=== PATIENT | female | born 1965 | race Caucasian/White ===

== ENCOUNTER 2016-11-21 15:32 | Emergency (ER) | payer SELFPAY ==
[~2016-11-21] VITALS: Wt 68.0 kg
[~2016-11-21 15:32] MED LIST: CEPH-443 PO; IBUP800T25 PO
== END 2016-11-21 20:54 | disposition left against medical advice (07) ==
LOC: E/R 15:32
DX: Z53.21 Procedure and treatment not carried out due to patient leaving prior to being seen by health care provider (principal)
CPT/HCPCS: 93005

== ENCOUNTER 2018-11-22 10:54 | Emergency (ER) | payer OTHER ==
[~2018-11-22] VITALS: Ht 167.6 cm; Wt 72.2 kg
[~2018-11-22 10:54] MED LIST changes: -IBUP800T25 PO; +IBUP800T48 PO
[2018-11-22 10:58] VITALS: Ht 167.6 cm; Wt 72.2 kg
[2018-11-22] MEDS ORDERED: SOD CHLORIDE 0.9% 720 ML IV ONE (12:30)
[2018-11-22] MEDS ORDERED: ATOR20TA38 PO (13:25)
[2018-11-22] MEDS ORDERED: LOSA50TA14 PO (13:25)
[2018-11-22] MEDS ORDERED: FLUO20CA22 PO (13:25)
[2018-11-22] MEDS ORDERED: ASPI-817 PO (13:25)
[2018-11-22] MEDS ORDERED: METF-480 PO (13:25)
[2018-11-22] MEDS ORDERED: LORA0.5T PO (13:25)
[2018-11-22] MEDS ORDERED: ONDANSETRON 4 MG INJ IV STA (13:48)
[2018-11-22] MEDS ORDERED: KETOROLAC 15 MG INJ IV STA (13:48)
--- NOTE | 2018-11-22 13:50 | ERD ---
ER Documentation Chief Complaint Chief Complaint Complains of headache and dizziness x 2 days HPI This is a 53-year-old female with a past medical history of hypertension, hyperlipidemia, diabetes who is presenting with 2 days of lightheadedness, dehydration and mild headache with nausea but no vomiting. The patient reports that she has not been drinking enough water recently and feels dehydrated. The patient describes her headache as mild, throbbing and frontal. It is not the worst headache of her life. She denies any photophobia or phonophobia. She does not have any blurry or double vision. She does not endorse dizziness. She does not feel like the room is spinning. The patient denies feeling sick recently. The patient denies fever or chills. The patient does not endorse neck or back pain. The patient has had no chest pain or trouble breathing. The patient denies abdominal pain. The patient denies changes to bowel movements or urination. The patient has had no focal deficits. The patient has had no weakness or numbness or tingling to the face or extremities. ROS All systems reviewed and are negative except as per history of present illness. Medications Home Meds Reported Medications Lorazepam* (Lorazepam*) 0.5 Mg Tablet, 0.5 MG PO Q8 PRN for ANXIETY, TAB 11/22/18 Fluoxetine Hcl* (Fluoxetine Hcl*) 20 Mg Capsule, 40 MG PO DAILY, CAP 11/22/18 Losartan Potassium* (Losartan Potassium*) 50 Mg Tablet, 50 MG PO DAILY, TAB 11/22/18 Atorvastatin Calcium* (Atorvastatin Calcium*) 20 Mg Tablet, 20 MG PO QHS, #30 TAB 11/22/18 Metformin* (Glucophage*) 850 Mg Tablet, 850 MG PO WITH BREAKFAST, #30 TAB 11/22/18 Aspirin* (Aspirin* EC) 81 Mg Tablet.dr, 81 MG PO DAILY, TAB 11/22/18 Discontinued Scripts Ibuprofen* (Motrin*) 800 Mg Tab, 800 MG PO Q6H PRN for PAIN AND OR ELEVATED TEMP, #30 TAB Prov:HAILE CAMACHO MD 06/24/15 Cephalexin* (Keflex*) 500 Mg Capsule, 500 MG PO BID for 14 Days, CAP Prov:HAILE CAMACHO MD 06/24/15 Allergies Allergies: Coded Allergies: No Known Allergy (Unverified , 11/22/18) PMhx/Soc History of Surgery: Yes (HERNIA, , APPI) Anesthesia Reaction: No Hx Neurological Disorder: No Hx Respiratory Disorders: No Hx Cardiac Disorders: Yes (HTN) Hx Psychiatric Problems: No Hx Miscellaneous Medical Probl: Yes (DM) Hx Alcohol Use: No Hx Substance Use: No Hx Tobacco Use: No Smoking Status: Never smoker FmHx Family History: diabetes Physical Exam Vitals Vital Signs Date Temp Pulse Resp B/P (MAP) Pulse Ox O2 O2 Flow FiO2 Time Delivery Rate 11/22/18 97.6 79 20 131/79 98 10:58 (96) Physical Exam Const: No apparent distress, well-developed, well-nourished Head: Normocephalic, Atraumatic Eyes: Normal Conjunctiva. Extraocular movements intact. Pupils equal, round and reactive to light ENT: Normal External Ears, Nose and Mouth. Neck: Full range of motion. No meningismus. Resp: Clear to auscultation bilaterally, No wheezes, rales or rhonchi Cardio: Regular rate and rhythm. No murmurs, rubs or gallops Abd: Soft, non tender, non distended. Normal bowel sounds Skin: No petechiae or rashes Back: No midline tenderness. No CVA tenderness Ext: No cyanosis, or edema Neur: Awake and alert, oriented 4. Cranial nerves intact. No facial droop. Normal strength, sensation and coordination. Psych: Normal Mood and Affect Result Diagram: 11/22/18 1157 11/22/18 1157 Results 24 hrs Laboratory Tests Test 11/22/18 11:51 11/22/18 11:57 11/22/18 12:08 Urine Color YELLOW Urine Clarity SLIGHTLY CLOUDY Urine pH 6.0 Urine Specific [place] 1.015 Urine Ketones 1+ mg/dL Urine Nitrite NEGATIVE mg/dL Urine Bilirubin NEGATIVE mg/dL Urine Urobilinogen NEGATIVE mg/dL Urine Leukocyte Esterase NEGATIVE Sara/ul Urine Microscopic RBC 2 /HPF Urine Microscopic WBC 0 /HPF Urine Squamous FEW /HPF Epithelial Cells Urine Mucus FEW /HPF Urine Hemoglobin 1+ mg/dL Urine Glucose NEGATIVE mg/dL Urine Total Protein NEGATIVE mg/dl White Blood Count 6.6 10^3/ul Red Blood Count 4.89 10^6/ul Hemoglobin 14.5 g/dl Hematocrit 44.2 % Mean Corpuscular Volume 90.4 fl Mean Corpuscular 29.7 pg Hemoglobin Mean Corpuscular 32.8 g/dl Hemoglobin Concent Red Cell Distribution 13.0 % Width Platelet Count 302 10^3/UL Mean Platelet Volume 10.5 fl Immature Granulocytes % 0.300 % Neutrophils % 62.4 % Lymphocytes % 29.3 % Monocytes % 6.4 % Eosinophils % 0.8 % Basophils % 0.8 % Nucleated Red Blood Cells 0.0 /100WBC % Immature Granulocytes # 0.020 10^3/ul Neutrophils # 4.1 10^3/ul Lymphocytes # 1.9 10^3/ul Monocytes # 0.4 10^3/ul Eosinophils # 0.1 10^3/ul Basophils # 0.1 10^3/ul Nucleated Red Blood Cells 0.0 10^3/ul # Sodium Level 138 mmol/L Potassium Level 4.1 mmol/L Chloride Level 101 mmol/L Carbon Dioxide Level 25 mmol/L Anion Gap 12 Blood Urea Nitrogen 15 mg/dl Creatinine 0.58 mg/dl Est Glomerular Filtrat > 60 mL/min Rate mL/min Glucose Level 169 mg/dl Calcium Level 10.2 mg/dl Phosphorus Level 4.2 mg/dl Magnesium Level 1.9 mg/dl Blood Gas Specimen Source Blood venous Arterial Blood Date 11/22/2018 1:28:40 PM Drawn Arterial Blood Gas VENOUS LINE Puncture Site Azael Test N/A Venous Blood pH 7.378 Venous Blood pCO2 45.1 mmHG (Temp Corrected) Venous Blood pO2 27.2 mmHG (Temp Corrected) Venous Blood HCO3 26.0 mmol/L Venous Blood Oxygen 53.2 mmHG Saturation Venous Blood Base Excess 0.4 mmol/L Venous Blood Total 14.6 g/dl Hemoglobin Venous Blood 52.6 % Oxyhemoglobin Venous Blood 0.4 % Methemoglobin Carboxyhemoglobin 0.7 % Blood Gas Temperature 37.0 C Blood Gas Modality ROOM AIR FiO2 21.0 % Blood Gas Notified Whom TM Blood Gas Notified Time 11/22/2018 1:34:17 PM Current Medications Medications Dose Sig/Alexis Start Time Status Last (Trade) Ordered Route PRN Stop Time Admin Dose Reason Admin Sodium 720 ml @ ONCE ONCE 11/22/18 DC 11/22/18 Chloride 720 mls/hr IV 12:30 13:21 11/22/18 13:29 Procedures/MDM MDM The patient's presentation warrants further investigation. Previous medical records, if available, were reviewed. LABS The patient's laboratory testing was obtained and reviewed. No emergent treatment was required unless described below. CBC: No E/o of systemic infection or severe anemia or thrombocytopenia Chemistry: No E/o severe acidosis or alkalosis or renal failure or diabetic k etoacidosis Urine: No E/o acute infection or hematuria EKG EKG read by me: Rate/Rhythm: Regular rate and rhythm at a rate of 67 bpm Intervals: Normal Proctor: Normal Impression: Q waves in the inferior leads concerning for possible old inferior ischemia. No evidence of acute ischemia or arrhythmia TREATMENT/DISPOSITION The patient presents after for presyncope, which is potentially related to dehydration. The patient does endorse feeling dehydrated and not drinking enough water recently. The patient has a reassuring physical exam. The patient is not clinically orthostatic. The patient is not dizzy. I have decreased suspicion for vertigo. The patient has no signs of emergent or symptomatic anemia. The patient does not have any emergent electrolyte or metabolic emergencies. I do not see evidence of DKA. I have decrease suspicion for a thyroid disorder. The patient is not toxic appearing. I have decreased suspicion for an infectious etiology of symptoms. The patient's EKG is reassuring. I have low suspicion for acute coronary syndrome. I do not see evidence of any emergent cardiac arrhythmia, which includes but is not limited to heart block, Brugada syndrome or WPW. The patient has no heart murmurs or rales. There is no evidence of cardiomegaly on exam or chest xray. I have low suspicion for hypertrophic cardiomyopathy. I do not see evidence of CHF. The patient does not endorse any chest or pleuritic pain. The history is negative for bleeding or clotting disorders. The patient has not been involved in any recent prolonged trips or surgeries or hospitalizations. The patient has no calf tenderness or swelling. I have decreased suspicion for PE as the etiology of symptoms. The patient also reports a headache. This too could be related to dehydration. Differential diagnosis also includes migraine, tension headache, cluster headache. The patient has no focal deficits. The neurologic exam is reassuring. I have decreased suspicion for cerebral ischemia. There was no trauma or injury. There is no personal or family history of cerebral aneurysm. This is not the worst headache of the patient's life. It was not acutely severe. It is been progressive in nature. I have decreased suspicion for SAH or other ICH. I have low suspicion for temporal arteritis, cavernous venous thrombosis, subdural hematoma, epidural hematoma, meningitis. She is given a dose of Toradol in the emergency department for her headache. The patient was treated with IV fluids and Zofran with significant improvement of her symptoms. Upon reevaluation of the patient, symptoms have improved. No emergent diagnoses were identified. At this time, I feel that the patient stable for discharge. The patient was instructed to follow-up with a primary care physician in 1-3 days. The patient will be given strict precautions with which to return to the emergency department. Prescriptions: Ibuprofen, Zofran The patient's blood pressure was elevated at greater than 120/80 while in the emergency department. The patient was otherwise stable with no evidence of hypertensive urgency or emergency. The patient does not require admission for blood pressure control. I have discussed with the patient the risks of hypertension. I have instructed the patient to return to the ER for any new or worsening symptoms including chest pain, shortness of breath, headache, blurred vision, confusion, nausea, vomiting or LOC. I have advised the patient to follow up with the primary care physician for outpatient monitoring and treatment for hypertension in 1-3 days. Disclaimer: Inadvertent spelling and grammatical errors are likely due to EHR/dictation software use and do not reflect on the overall quality of patient care. Note that the electronic time recorded on this note does not necessarily reflect the actual time of the patient encounter. Departure Diagnosis: Primary Impression: Lightheadedness Additional Impressions: Dehydration Headache Headache type: unspecified Headache chronicity pattern: acute headache Intractability: not intractable Qualified Codes: R51 - Headache Nausea Condition: Stable CLAUDY PAULSON MD Nov 22, 2018 13:50
[2018-11-22] MEDS ORDERED: IBUP-1542 PO (13:56)
[2018-11-22] MEDS ORDERED: ONDA8TAB9 PO (13:56)
[2018-11-22 14:54] VITALS: BP 136/72; PULSE 89; RESP 20
== END 2018-11-22 14:56 | disposition home or self-care (01) ==
LOC: E/R 10:54
DX: R42 Dizziness and giddiness (principal); E86.0 Dehydration; R11.0 Nausea; E11.9 Type 2 diabetes mellitus without complications; I10 Essential (primary) hypertension; Z79.82 Long term (current) use of aspirin; Z79.84 Long term (current) use of oral hypoglycemic drugs
CPT/HCPCS: 36415; 80048; 81001; 82803; 83735; 84100; 85025; 93005; 96361; 96374; 96375; J1885; J2405; J7030; Z7502